=== PATIENT | male | born 1980 | race Caucasian/White ===

== ENCOUNTER 2020-06-11 05:33 | Observation (INO) ==
[2020-06-11] MEDS ORDERED: Famotidine IV 10 MG/ML 2 ml VIAL (20 mg) IV ONE (06:00)
[2020-06-11] MEDS ORDERED: Lactated Ringers 1000 ml BAG 1,000 ML IV SCH ×2 (06:00→11:00)
[2020-06-11] MEDS ORDERED: Buffered Lidocaine 1% SYRIN 1 ml INTRADERM ONE ×2 (06:00→06:15)
[2020-06-11] MEDS ORDERED: ceFAZolin 2 GM PREMIX 0 GM/0 ML BAG ONE (06:15)
[2020-06-11] MEDS ORDERED: Famotidine IV 10 MG/ML 2 ml VIAL (20 mg) ONE (06:15)
[2020-06-11] MEDS ORDERED: Propofol 10 MG/ML 20 ML BTL ONE (07:13)
[2020-06-11] MEDS ORDERED: Ondansetron 4 mg VIAL 2 MG/ML 2 ml VIAL ONE (07:13)
[2020-06-11] MEDS ORDERED: Dexamethasone IV 4 MG/ML VIAL 1 ml VIAL ONE (07:13)
[2020-06-11] MEDS ORDERED: Midazolam 2 mg/2 ml VIAL 1 mg/ml 2 ml VIAL (2 mg) ONE (07:13)
[2020-06-11] MEDS ORDERED: Lidocaine 2% PF 5 ML VIAL ONE (07:14)
[2020-06-11] MEDS ORDERED: Ketamine HCL 50 mg/ml 10 ml VIAL (500 MG) ONE (07:14)
[2020-06-11] MEDS ORDERED: Phenylephrine IV 10 MG/ML 1 ml VIAL ONE (07:14)
[2020-06-11] MEDS ORDERED: Bupivacaine 0.5% SDV PF 30ML VIAL ONE (07:16)
[2020-06-11] MEDS ORDERED: Lidocaine 1% w EPI 1:200,000 SDV 30 ML VIAL ONE (07:16)
[2020-06-11] MEDS ORDERED: fentaNYL 250 mcg/5 ml 50 MCG/ML 5 ml VIAL (250 MCG) ONE (07:26)
[2020-06-11] MEDS ORDERED: Vancomycin 1,000 MG VIAL ONE (08:30)
[2020-06-11] MEDS ORDERED: HYDROmorphone 1 MG/1 ML SYRINGE ONE (08:55)
[2020-06-11] MEDS ORDERED: Glycopyrrolate IV 0.2 MG/ML 1 ML VIAL ONE (08:57)
[2020-06-11] MEDS ORDERED: Ondansetron ODT 4 mg TAB 4 MG TAB PO PRN (10:50)
[2020-06-11] MEDS ORDERED: diPHENhydraMINE 25 mg TAB PO PRN (10:50)
[2020-06-11] MEDS ORDERED: Lactulose 30 ml UDC PO PRN (10:50)
[2020-06-11] MEDS ORDERED: Morphine 2 MG/ML SYRINGE IV PRN (10:50)
[2020-06-11] MEDS ORDERED: diPHENhydraMINE IV 50 MG/ML 1 ml VIAL (BENADRYL) IV PRN (10:50)
[2020-06-11] MEDS ORDERED: Magnesium Hydroxide LIQ 30 ML UDC PO PRN (10:50)
[2020-06-11] MEDS ORDERED: oxyCODONE/Acetamin 5/325 mg TAB PO PRN ×2 (10:50)
[2020-06-11] MEDS ORDERED: Ondansetron 4 mg VIAL 2 MG/ML 2 ml VIAL IV PRN ×2 (10:50→11:01)
[2020-06-11] MEDS ORDERED: HYDROmorphone 1 MG/1 ML SYRINGE IV PRN (11:01)
[2020-06-11] MEDS ORDERED: Naloxone 0.4 mg VIAL 0.4 mg/ml 1 ml VIAL IV PRN (11:01)
[2020-06-11] MEDS ORDERED: fentaNYL 100 mcg/2 ml 50 MCG/ML VIAL ONE (11:05)
[2020-06-11] MEDS: fentaNYL 100 mcg/2 ml 50 MCG/ML VIAL IV PRN ×2 (11:07→12:11)
[2020-06-11 14:10] VITALS: BP 132/85
[2020-06-11] MEDS ORDERED: ceFAZolin 1 GM ADVAN 1 GM in NS 0.9% 50 ML 50 ML IVPB SCH (17:00)
[2020-06-11] MEDS ORDERED: Magnesium Hydroxide LIQ 30 ML UDC PO SCH (21:00)
[2020-06-12] MEDS ORDERED: Polyethylene Glycol 3350 17 GM PACKET PO PRN (00:01)
[2020-06-12] MEDS ORDERED: Vitamin THERAPEUTIC TAB PO SCH (09:00)
[2020-06-14] MEDS ORDERED: Scopolamine PATCH Remove NOTE PATCH OFF ONE (06:00)
== END 2020-06-11 17:45 | disposition home or self-care (01) ==
LOC: SSU 05:33 → OR 05:33
PROVIDERS: ADMIT Orthopaedic Surgery; ATTEND Orthopaedic Surgery